=== PATIENT | male | born 1960 | race Caucasian/White ===

== ENCOUNTER 2022-05-23 12:50 | Observation (INO) | payer BC ==
[~2022-05-23] VITALS: Ht 180.3 cm; Wt 65.8 kg
[2022-05-23 13:50] LABS: BASOPHILS ABSOLUTE AUTO 0.04 K/mm3 (0.00-0.23); BASOPHILS PERCENT AUTO 0 % (0-2); EOSINOPHILS PERCENT AUTO 0 % (0-6); Hemoglobin 11.9 g/dL (13.5-17.5); IMMATURE GRAN ABSOLUTE AUTO 0.04 K/mm3 (0.00-0.10); IMMATURE GRAN PERCENT AUTO 0 % (0-1); LYMPHOCYTES ABSOLUTE AUTO 1.28 K/mm3 (0.84-5.20); LYMPHOCYTES PERCENT AUTO 13 % (21-46); MONOCYTES ABSOLUTE AUTO 0.93 K/mm3 (0.16-1.47); MONOCYTES PERCENT AUTO 9 % (4-13); Mean Corpuscular HGB 33.4 pg (26.0-34.0); Mean Corpuscular Volume 98 fL (80-100); Mean Platelet Volume 9.9 fL (9.1-12.4); NEUTROPHILS ABSOLUTE AUTO 7.83 K/mm3 (1.96-9.15); NEUTROPHILS PERCENT AUTO 77 % (41-73); Platelet Count 361 K/mm3 (150-400); RDW Coefficient Variation 11.7 % (11.7-14.2); RDW Standard Deviation 42.5 fL (35.1-46.3); Red Blood Cell Count 3.56 M/mm3 (4.30-5.90); White Blood Cell Count 10.12 K/mm3 (4.00-11.30)
[2022-05-23 14:35] LABS: Albumin, Blood 3.8 g/dL (3.4-5.0); Albumin/Globulin Ratio 1.2 (0.8-1.8); Bilirubin, Total 0.8 mg/dL (0.1-1.0); Bun/Creatinine Ratio 27.1 (12.0-20.0); Calcium, Blood 8.7 mg/dL (8.5-10.1); Creatinine, Blood 0.74 mg/dL (0.60-1.20); Globulin, Blood 3.2 g/dL (2.2-4.0); Potassium, Blood 3.6 mmol/L (3.5-5.5)
[2022-05-23 16:10] LABS: Source, Urine Clean Catch
[2022-05-23 16:15] LABS: Appearance, Urine Clear (Clear); Bilirubin, Urine Neg (Neg); Blood, Urine 3+ (Neg); Color, Urine Yellow (P-Yellow); Glucose Qualitative, Urine Neg (Neg); Ketones, Urine 4+ (Neg); Leukocyte Esterase, Urine Neg (Neg); Nitrite, Urine Neg (Neg); Protein, Urine 3+ (Neg); Urobilinogen, Urine NORM (Normal)
[2022-05-23 16:23] LABS: Bacteria Rare /hpf; Squamous Epithelial Cells Not Seen /hpf (Few); White Blood Cells, Urine 0-2 /hpf (0-5)
[2022-05-23 18:09] LABS: Influenza A, PCR NEGATIVE (NEGATIVE); Influenza B, PCR NEGATIVE (NEGATIVE); Resp Syncytial Virus, PCR NEGATIVE (NEGATIVE); SARS-Cov-2 (COVID-19) PCR, MMC NEGATIVE (NEGATIVE)
[2022-05-23] MEDS ORDERED: LORA1 PO (22:34)
[2022-05-23] MEDS ORDERED: HALO2 PO (22:34)
[2022-05-23] MEDS ORDERED: QUET200 (22:34)
[2022-05-24 07:50] LABS: U Amphetamine Screen Not Detected; U Barbituate Screen Not Detected; U Benzodiazapine Screen Not Detected; U Buprenorphine Screen Not Detected; U Cannabinoids Screen DETECTED; U Cocaine Screen Not Detected; U Methadone Screen Not Detected; U Methamphetamine Screen Not Detected; U Opiates Screen DETECTED; U Oxycodone Screen Not Detected; U Phencyclidine Screen Not Detected; U Propoxyphene Screen Not Detected
[2022-05-24 15:38] LABS: Ethanol (Alcohol), Blood, Med <3 mg/dL; Salicylate 1.8 mg/dL (2.8-20.0)
[2022-05-24 15:42] LABS: Acetaminophen, Random <2.0 ug/mL (10.0-30.0)
== END 2022-05-25 13:20 ==
LOC: ER 12:50 → EOR 12:51
PROVIDERS: Emergency Medicine; Physician Assistant; Psychiatry & Neurology Psychiatry; ADMIT Emergency Medicine
DX: F20.9 Schizophrenia, unspecified (principal); Z88.1 Allergy status to other antibiotic agents; R10.13 Epigastric pain
CPT/HCPCS: 0241U; 74177; 80053; 81001; 82947; 83690; 85025; 86592; A9270; G0480; J1170; J2405; J7030; Q9967

== ENCOUNTER 2024-06-06 08:03 | Emergency (ER) | payer SELFPAY ==
[~2024-06-06] VITALS: Ht 177.8 cm; Wt 70.3 kg
[~2024-06-06 08:03] MED LIST: HALO2 PO; LORA1 PO; QUET200 PO
[2024-06-06] MEDS ORDERED: Ondansetron HCl 2 MG / ML 2ML Vial IV ONE ×2 (08:35→09:10)
[2024-06-06] MEDS ORDERED: NS 1,000 ML IV SCH ×2 (08:35)
[2024-06-06] MEDS ORDERED: Morphine Sulfate 4 MG/1 ML Injection IV ONE ×2 (08:35→09:10)
[2024-06-06] MEDS ORDERED: Haloperidol Lactate Inj. 5 MG/ML Injection IV ONE (08:40)
[2024-06-06] MEDS ORDERED: DiphenhydrAMINE HCl 50 MG/ML 1ML Vial IV ONE (08:40)
[2024-06-06 08:54] LABS: BASOPHILS ABSOLUTE AUTO 0.06 K/mm3 (0.00-0.23); BASOPHILS PERCENT AUTO 1 % (0-2); EOSINOPHILS ABSOLUTE AUTO 0.23 K/mm3 (0.00-0.68); EOSINOPHILS PERCENT AUTO 3 % (0-6); Hematocrit 33.5 % (37.0-53.0); Hemoglobin 11.5 g/dL (13.5-17.5); IMMATURE GRAN ABSOLUTE AUTO 0.03 K/mm3 (0.00-0.10); IMMATURE GRAN PERCENT AUTO 0 % (0-1); LYMPHOCYTES ABSOLUTE AUTO 2.76 K/mm3 (0.84-5.20); LYMPHOCYTES PERCENT AUTO 31 % (21-46); MONOCYTES ABSOLUTE AUTO 0.96 K/mm3 (0.16-1.47); MONOCYTES PERCENT AUTO 11 % (4-13); Mean Corpuscular HGB 33.2 pg (26.0-34.0); Mean Corpuscular HGB Conc 34.3 g/dL (31.5-36.5); Mean Corpuscular Volume 97 fL (80-100); Mean Platelet Volume 9.2 fL (9.1-12.4); NEUTROPHILS ABSOLUTE AUTO 4.94 K/mm3 (1.96-9.15); NEUTROPHILS PERCENT AUTO 55 % (41-73); Platelet Count 352 K/mm3 (150-400); RDW Coefficient Variation 12.3 % (11.7-14.2); RDW Standard Deviation 43.8 fL (35.1-46.3); Red Blood Cell Count 3.46 M/mm3 (4.30-5.90); White Blood Cell Count 8.98 K/mm3 (4.00-11.30)
[2024-06-06] MEDS ORDERED: FAMO20 PO ×2 (09:00→12:17)
[2024-06-06] MEDS ORDERED: DULO60 PO (09:00)
[2024-06-06] MEDS ORDERED: TRAZ50 PO (09:00)
[2024-06-06 09:23] LABS: Magnesium, Blood 2.1 mg/dL (1.6-2.4)
[2024-06-06 09:24] LABS: Albumin, Blood 3.9 g/dL (3.4-5.0); Albumin/Globulin Ratio 1.2 (0.8-1.8); Bilirubin, Total 0.6 mg/dL (0.1-1.0); Bun/Creatinine Ratio 17.9 (12.0-20.0); Calcium, Blood 8.7 mg/dL (8.5-10.1); Creatinine, Blood 0.73 mg/dL (0.60-1.20); Globulin, Blood 3.3 g/dL (2.2-4.0); Potassium, Blood 3.8 mmol/L (3.5-5.5); Total Protein, Blood 7.2 g/dL (6.4-8.2)
[2024-06-06] MEDS ORDERED: Famotidine 10 MG/ML 2ML Vial IV ONE (09:40)
[2024-06-06 09:49] LABS: Source, Urine Clean Catch
[2024-06-06] MEDS ORDERED: Metoclopramide HCl 5MG / ML 2ML Vial IV ONE (09:55)
[2024-06-06 09:58] LABS: Appearance, Urine Clear (Clear); Bilirubin, Urine Neg (Neg); Blood, Urine 1+ (Neg); Color, Urine Yellow (P-Yellow); Glucose Qualitative, Urine Neg (Neg); Ketones, Urine 2+ (Neg); Leukocyte Esterase, Urine Neg (Neg); Nitrite, Urine Neg (Neg); Protein, Urine 2+ (Neg); Urobilinogen, Urine NORM (Normal); pH, Urine 6.5 (5.0-8.0)
[2024-06-06 10:18] LABS: Spermatozoa Rare /hpf
[2024-06-06 10:19] LABS: White Blood Cells, Urine 0-2 /hpf (0-5)
[2024-06-06 10:20] LABS: Squamous Epithelial Cells Rare /hpf (Few)
[2024-06-06 10:21] LABS: Amorphous Light (0-Heavy); Bacteria Rare /hpf; Mucus Light (0-Heavy)
[2024-06-06] MEDS ORDERED: HYDROmorphone HCl/Pf 1MG SYR IV ONE (11:45)
[2024-06-06 11:55] VITALS: BP 144/99
[2024-06-06] MEDS ORDERED: ACET500 PO (12:17)
[2024-06-06] MEDS ORDERED: DICY20 PO (12:17)
== END 2024-06-06 12:34 | disposition home or self-care (01) ==
LOC: ER 08:03
PROVIDERS: Emergency Medicine
DX: K20.90 Esophagitis, unspecified without bleeding (principal); K29.70 Gastritis, unspecified, without bleeding; Z79.899 Other long term (current) drug therapy; Z88.1 Allergy status to other antibiotic agents
CPT/HCPCS: 74177; 80053; 81001; 83690; 83735; 85025; 93005; 93010; 96361; 96374-59; 96375; 99284-25; J1171; J1200; J1630; J2270; J2405; J2765; J7030; Q9967

== ENCOUNTER 2024-07-16 13:11 | Day surgery (SDC) | payer BC ==
[~2024-07-16] VITALS: Ht 175.3 cm; Wt 66.5 kg
[2024-07-16 15:47] VITALS: BP 111/60
== END 2024-07-16 15:30 | disposition home or self-care (01) ==
LOC: ORSCSDS 13:11
PROC: 0DB58ZX Excision of Esophagus, Via Natural or Artificial Opening Endoscopic, Diagnostic (ICD-10-PCS; principal; 2024-07-16)
PROC: 0DJD8ZZ Inspection of Lower Intestinal Tract, Via Natural or Artificial Opening Endoscopic (ICD-10-PCS; principal; 2024-07-16)
PROC: 0DB98ZX Excision of Duodenum, Via Natural or Artificial Opening Endoscopic, Diagnostic (ICD-10-PCS; principal; 2024-07-16)
PROC: 0DB78ZX Excision of Stomach, Pylorus, Via Natural or Artificial Opening Endoscopic, Diagnostic (ICD-10-PCS; principal; 2024-07-16)
DX: R10.13 Epigastric pain (principal); R19.4 Change in bowel habit; R13.10 Dysphagia, unspecified; K21.9 Gastro-esophageal reflux disease without esophagitis; K62.5 Hemorrhage of anus and rectum; K29.80 Duodenitis without bleeding; K29.50 Unspecified chronic gastritis without bleeding; B96.81 Helicobacter pylori [H. pylori] as the cause of diseases classified elsewhere; K22.70 Barrett's esophagus without dysplasia; R93.3 Abnormal findings on diagnostic imaging of other parts of digestive tract; K64.8 Other hemorrhoids; Z79.899 Other long term (current) drug therapy

== ENCOUNTER 2024-08-05 03:47 | Emergency (ER) | payer BC ==
[~2024-08-05] VITALS: Ht 177.8 cm; Wt 63.5 kg
[~2024-08-05 03:47] MED LIST changes: +ACET500 PO; +ATOR10; +DICY20 PO; +DULO60 PO; +FAMO20 PO; +TRAZ50 PO
[2024-08-05] MEDS ORDERED: Ondansetron HCl 2 MG / ML 2ML Vial IV PRN (04:15)
[2024-08-05 04:26] LABS: BASOPHILS ABSOLUTE AUTO 0.04 K/mm3 (0.00-0.23); BASOPHILS PERCENT AUTO 1 % (0-2); EOSINOPHILS ABSOLUTE AUTO 0.14 K/mm3 (0.00-0.68); EOSINOPHILS PERCENT AUTO 2 % (0-6); Hematocrit 32.6 % (37.0-53.0); IMMATURE GRAN ABSOLUTE AUTO 0.02 K/mm3 (0.00-0.10); IMMATURE GRAN PERCENT AUTO 0 % (0-1); LYMPHOCYTES PERCENT AUTO 36 % (21-46); MONOCYTES ABSOLUTE AUTO 0.83 K/mm3 (0.16-1.47); MONOCYTES PERCENT AUTO 10 % (4-13); Mean Corpuscular HGB 33.9 pg (26.0-34.0); Mean Corpuscular HGB Conc 36.8 g/dL (31.5-36.5); Mean Corpuscular Volume 92 fL (80-100); Mean Platelet Volume 9.1 fL (9.1-12.4); NEUTROPHILS ABSOLUTE AUTO 4.12 K/mm3 (1.96-9.15); NEUTROPHILS PERCENT AUTO 51 % (41-73); Platelet Count 386 K/mm3 (150-400); RDW Coefficient Variation 13.2 % (11.7-14.2); RDW Standard Deviation 45.2 fL (35.1-46.3); Red Blood Cell Count 3.54 M/mm3 (4.30-5.90); White Blood Cell Count 8.05 K/mm3 (4.00-11.30)
[2024-08-05 04:59] LABS: Albumin, Blood 4.1 g/dL (3.4-5.0); Albumin/Globulin Ratio 1.2 (0.8-1.8); Bilirubin, Total 0.7 mg/dL (0.1-1.0); Calcium, Blood 9.2 mg/dL (8.5-10.1); Creatinine, Blood 0.65 mg/dL (0.60-1.20); Globulin, Blood 3.5 g/dL (2.2-4.0); Potassium, Blood 2.6 mmol/L (3.5-5.5); Total Protein, Blood 7.6 g/dL (6.4-8.2)
[2024-08-05] MEDS ORDERED: Pantoprazole Sodium 40 MG Injection IV ONE (07:10)
[2024-08-05] MEDS ORDERED: Mag Sulfate 1 GM/D5% 100ML 100 ML IV ONE (07:10)
[2024-08-05] MEDS ORDERED: Prochlorperazine Edisylate 10 mg Vial IV ONE (07:10)
[2024-08-05] MEDS ORDERED: Potassium Chloride 40 MEQ in NS 250 ML IV ONE (07:10)
[2024-08-05] MEDS ORDERED: NS 1,000 ML IV SCH ×2 (07:10)
[2024-08-05] MEDS ORDERED: HYDROmorphone HCl/Pf 1MG SYR IV ONE (07:15)
[2024-08-05] MEDS ORDERED: Potassium Chloride 20 MEQ TabCR PO ONE (08:55)
[2024-08-05] MEDS ORDERED: MetroNIDAZOLE 500MG/NS 100 ml 100 ML IV ONE (08:55)
[2024-08-05] MEDS ORDERED: Bismuth Subsalicylate 262 MG Chew PO ONE (09:15)
[2024-08-05 09:45] VITALS: BP 161/96
[2024-08-05] MEDS ORDERED: Haloperidol 1 MG Tab PO ONE (10:10)
[2024-08-05] MEDS ORDERED: Mag Hydrox/AL Hydrox/Simeth 30 ML UDC PO ONE (12:10)
[2024-08-05] MEDS ORDERED: ONDA4ODT MM (12:12)
== END 2024-08-05 13:01 | disposition home or self-care (01) ==
LOC: ER 03:47
PROVIDERS: Student in an Organized Health Care Education/Training Program
DX: A04.8 Other specified bacterial intestinal infections (principal); E87.6 Hypokalemia; Z88.1 Allergy status to other antibiotic agents; Z79.899 Other long term (current) drug therapy
CPT/HCPCS: 80053; 83690; 83735; 85025; 93005; 93010; 96365; 96366; 96368; 96375; 99284-25; A9270; J0780; J1171; J2405; J2470; J3475; J3480; J7030; J7050

== ENCOUNTER → 2024-09-09 | Outpatient (CLI) | payer BC ==
[~2024-09-09] MED LIST changes: +ONDA4ODT MM
[2024-09-09 09:27] LABS: Source, Urine Voided
[2024-09-09 09:45] LABS: Red Blood Cells, Urine 0-2 /hpf (0-2); White Blood Cells, Urine 0-2 /hpf (0-5)
[2024-09-09 12:31] LABS: Stool Occult Bld Immuno 1 Negative (NEGATIVE)
== END | disposition home or self-care (01) ==
LOC: LAB 08:03 → LAB SHORT 08:03
PROVIDERS: Nurse Practitioner Family
DX: D64.9 Anemia, unspecified (principal)
CPT/HCPCS: 81015; 82274

== ENCOUNTER → 2024-12-24 | Outpatient (CLI) | payer BC ==
[2024-12-24 17:49] LABS: BASOPHILS ABSOLUTE AUTO 0.08 K/mm3 (0.00-0.23); BASOPHILS PERCENT AUTO 1 % (0-2); EOSINOPHILS ABSOLUTE AUTO 0.31 K/mm3 (0.00-0.68); EOSINOPHILS PERCENT AUTO 3 % (0-6); Hematocrit 38.0 % (37.0-53.0); Hemoglobin 12.6 g/dL (13.5-17.5); IMMATURE GRAN ABSOLUTE AUTO 0.05 K/mm3 (0.00-0.10); IMMATURE GRAN PERCENT AUTO 1 % (0-1); LYMPHOCYTES ABSOLUTE AUTO 2.60 K/mm3 (0.84-5.20); LYMPHOCYTES PERCENT AUTO 27 % (21-46); MONOCYTES ABSOLUTE AUTO 1.01 K/mm3 (0.16-1.47); MONOCYTES PERCENT AUTO 10 % (4-13); Mean Corpuscular HGB Conc 33.2 g/dL (31.5-36.5); Mean Corpuscular Volume 97 fL (80-100); NEUTROPHILS ABSOLUTE AUTO 5.63 K/mm3 (1.96-9.15); NEUTROPHILS PERCENT AUTO 58 % (41-73); NRBC ABSOLUTE 0.00 K/mm3 (0.00-0.02); NRBC Auto 0.0 /100 WBC (0.0-0.2); Platelet Count 326 K/mm3 (150-400); RDW Coefficient Variation 13.2 % (11.7-14.2); RDW Standard Deviation 47.0 fL (35.1-46.3)
[2024-12-24 18:41] LABS: Alanine Aminotransfer (ALT/SGP 28.0 U/L (12-78); Albumin, Blood 3.8 g/dL (3.4-5.0); Albumin/Globulin Ratio 1.0 (0.8-1.8); Anion Gap 9.0 mmol/L (3-11); Aspartate Aminotrans (AST/SGOT 13.0 U/L (12-37); Bilirubin, Total 0.3 mg/dL (0.1-1.0); Blood Urea Nitrogen 18.0 mg/dL (8-24); CO2, Blood 26.0 mmol/L (21-32); Calcium, Blood 8.9 mg/dL (8.5-10.1); Chloride, Blood 103.0 mmol/L (98-108); Creatinine, Blood 0.75 mg/dL (0.60-1.20); Ferritin, Serum 118.0 ng/mL (26-388); Globulin, Blood 3.7 g/dL (2.2-4.0); Glucose, Blood 114.0 mg/dL (70-99); Potassium, Blood 3.8 mmol/L (3.5-5.5); Sodium, Blood 134.0 mmol/L (136-145); Total Iron Binding Capacity 356.0 ug/dL (250-450); Total Protein, Blood 7.5 g/dL (6.4-8.2)
== END ==
LOC: LAB 16:35 → LAB SHORT 16:35
PROVIDERS: Nurse Practitioner Family
DX: D64.9 Anemia, unspecified (principal)
CPT/HCPCS: 80053; 82728; 83540; 83550; 85025

== ENCOUNTER 2025-01-09 17:54 | Inpatient (IN) | payer BC ==
[~2025-01-09] VITALS: Ht 177.8 cm; Wt 66.2 kg
[2025-01-09] MEDS ORDERED: Ondansetron HCl 2 MG / ML 2ML Vial IV ONE ×2 (18:30→20:35)
[2025-01-09] MEDS ORDERED: HYDROmorphone HCl/Pf 1MG SYR IV ONE ×3 (18:30→21:45)
[2025-01-09 18:55] LABS: BASOPHILS ABSOLUTE AUTO 0.05 K/mm3 (0.00-0.23); BASOPHILS PERCENT AUTO 0 % (0-2); EOSINOPHILS ABSOLUTE AUTO 0.00 K/mm3 (0.00-0.68); EOSINOPHILS PERCENT AUTO 0 % (0-6); Hematocrit 34.5 % (37.0-53.0); Hemoglobin 12.0 g/dL (13.5-17.5); IMMATURE GRAN ABSOLUTE AUTO 0.16 K/mm3 (0.00-0.10); IMMATURE GRAN PERCENT AUTO 1 % (0-1); LYMPHOCYTES ABSOLUTE AUTO 1.50 K/mm3 (0.84-5.20); LYMPHOCYTES PERCENT AUTO 8 % (21-46); MONOCYTES ABSOLUTE AUTO 2.45 K/mm3 (0.16-1.47); MONOCYTES PERCENT AUTO 12 % (4-13); Mean Corpuscular HGB Conc 34.8 g/dL (31.5-36.5); Mean Corpuscular Volume 92 fL (80-100); NEUTROPHILS ABSOLUTE AUTO 15.74 K/mm3 (1.96-9.15); NEUTROPHILS PERCENT AUTO 79 % (41-73); NRBC ABSOLUTE 0.00 K/mm3 (0.00-0.02); NRBC Auto 0.0 /100 WBC (0.0-0.2); Platelet Count 324 K/mm3 (150-400); RDW Coefficient Variation 12.5 % (11.7-14.2); RDW Standard Deviation 42.3 fL (35.1-46.3)
[2025-01-09 19:25] LABS: Alanine Aminotransfer (ALT/SGP 20.0 U/L (12-78); Albumin, Blood 3.3 g/dL (3.4-5.0); Albumin/Globulin Ratio 0.7 (0.8-1.8); Anion Gap 10.0 mmol/L (3-11); Aspartate Aminotrans (AST/SGOT 17.0 U/L (12-37); Bilirubin, Total 0.7 mg/dL (0.1-1.0); Blood Urea Nitrogen 15.0 mg/dL (8-24); CO2, Blood 27.0 mmol/L (21-32); Calcium, Blood 8.7 mg/dL (8.5-10.1); Chloride, Blood 94.0 mmol/L (98-108); Creatinine, Blood 1.06 mg/dL (0.60-1.20); Globulin, Blood 4.7 g/dL (2.2-4.0); Glucose, Blood 156.0 mg/dL (70-99); Potassium, Blood 3.4 mmol/L (3.5-5.5); Sodium, Blood 128.0 mmol/L (136-145); Total Protein, Blood 8.0 g/dL (6.4-8.2)
[2025-01-09] MEDS ORDERED: NS 1,000 ML IV SCH ×2 (20:35→21:50)
[2025-01-09] MEDS ORDERED: Lidocaine 2% Jelly Uro-Jet UR ONE (20:50)
[2025-01-09 21:21] LABS: Source, Urine Foley catheter
[2025-01-09 21:26] LABS: Bilirubin, Urine Neg (Neg); Color, Urine Yellow (P-Yellow); Glucose Qualitative, Urine Neg (Neg); Ketones, Urine 1+ (Neg); Leukocyte Esterase, Urine 2+ (Neg); Protein, Urine 4+ (Neg); Specific Gravity, Urine 1.010 (1.003-1.022); Urobilinogen, Urine 1+ (Normal)
[2025-01-09 21:32] LABS: White Blood Cells, Urine 25-50 /hpf (0-5)
[2025-01-09] MEDS ORDERED: Ketorolac Tromethamine 30mg Vial IV ONE (21:35)
[2025-01-09] MEDS ORDERED: HYDROmorphone HCl/Pf 1MG SYR ONE (21:45)
[2025-01-09] MEDS ORDERED: LORazepam 2 MG/ML 1ML Injection IV ONE (21:50)
[2025-01-09] MEDS ORDERED: CefTRIAXone Sodium 1,000 MG in NS 50 ML IV ONE (21:50)
[2025-01-09] MEDS ORDERED: HYDROmorphone HCl/Pf 1MG SYR IV PRN (22:45)
[2025-01-09] MEDS ORDERED: Naloxone HCl 0.4MG / ML 1ML Vial IV PRN (22:45)
[2025-01-09] MEDS ORDERED: Ondansetron HCl 2 MG / ML 2ML Vial IV PRN (22:45)
[2025-01-09] MEDS ORDERED: FLU VACC TS2025-26(6MOS UP)/PF 45 MCG/0.5 ML SYRINGE IM SCH (22:45)
[2025-01-09] MEDS ORDERED: HYDROcodone 5-APAP 325 TAB PO PRN (22:45)
[2025-01-09] MEDS ORDERED: Ketorolac Tromethamine 15mg Vial IV PRN (23:05)
[2025-01-09 23:29] LABS: pH Blood Venous 7.40 (7.34-7.37)
[2025-01-09 23:33] LABS: U Amphetamine Screen Not Detected; U Barbiturate Screen Not Detected; U Benzodiazapine Screen DETECTED; U Buprenorphine Screen Not Detected; U Cannabinoids Screen DETECTED; U Cocaine Screen Not Detected; U Methadone Screen Not Detected; U Methamphetamine Screen Not Detected; U Opiates Screen Not Detected; U Oxycodone Screen Not Detected; U Phencyclidine Screen Not Detected
[2025-01-10 01:40] VITALS: BP 118/91
--- NOTE | 2025-01-10 03:28 | NUR ---
ADMIT SUMMARY: PT ARRIVED ON UNIT VIA GURNEY AT 0117. PT APPEARD TO BE CONFUSED AND AGGITATED. PT STATED THEY WERE IN A LOT OF PAIN SO PT WAS MEDICATED PER EMAR. PT IS IMPULSIVE AND WAS FOUND TO BE TRYING TO PEE IN THE TRASH CAN WITH THEIR MONTES IN PLACE. PT REMINDED THAT THEY HAVE A MONTES AND REDIRECTED BACK TO BED. BED ALARM SET.
[2025-01-10 04:43] LABS: BASOPHILS ABSOLUTE AUTO 0.04 K/mm3 (0.00-0.23); BASOPHILS PERCENT AUTO 0 % (0-2); EOSINOPHILS ABSOLUTE AUTO 0.00 K/mm3 (0.00-0.68); EOSINOPHILS PERCENT AUTO 0 % (0-6); Hematocrit 29.6 % (37.0-53.0); Hemoglobin 9.9 g/dL (13.5-17.5); IMMATURE GRAN ABSOLUTE AUTO 0.15 K/mm3 (0.00-0.10); IMMATURE GRAN PERCENT AUTO 1 % (0-1); LYMPHOCYTES ABSOLUTE AUTO 0.68 K/mm3 (0.84-5.20); LYMPHOCYTES PERCENT AUTO 4 % (21-46); MONOCYTES ABSOLUTE AUTO 1.89 K/mm3 (0.16-1.47); MONOCYTES PERCENT AUTO 12 % (4-13); Mean Corpuscular HGB Conc 33.4 g/dL (31.5-36.5); Mean Corpuscular Volume 96 fL (80-100); NEUTROPHILS ABSOLUTE AUTO 13.68 K/mm3 (1.96-9.15); NEUTROPHILS PERCENT AUTO 83 % (41-73); NRBC ABSOLUTE 0.00 K/mm3 (0.00-0.02); NRBC Auto 0.0 /100 WBC (0.0-0.2); Platelet Count 276 K/mm3 (150-400); RDW Coefficient Variation 12.7 % (11.7-14.2); RDW Standard Deviation 43.8 fL (35.1-46.3)
[2025-01-10 05:08] LABS: Alanine Aminotransfer (ALT/SGP 15.0 U/L (12-78); Albumin, Blood 2.3 g/dL (3.4-5.0); Albumin/Globulin Ratio 0.6 (0.8-1.8); Anion Gap 9.0 mmol/L (3-11); Aspartate Aminotrans (AST/SGOT 17.0 U/L (12-37); Bilirubin, Total 0.5 mg/dL (0.1-1.0); Blood Urea Nitrogen 14.0 mg/dL (8-24); CO2, Blood 24.0 mmol/L (21-32); Calcium, Blood 7.8 mg/dL (8.5-10.1); Chloride, Blood 102.0 mmol/L (98-108); Creatinine, Blood 0.93 mg/dL (0.60-1.20); Globulin, Blood 3.9 g/dL (2.2-4.0); Glucose, Blood 124.0 mg/dL (70-99); Magnesium, Blood 2.1 mg/dL (1.6-2.4); Potassium, Blood 3.5 mmol/L (3.5-5.5); Sodium, Blood 131.0 mmol/L (136-145); Total Protein, Blood 6.2 g/dL (6.4-8.2)
--- NOTE | 2025-01-10 06:32 | NUR ---
[facility] CALLED FOR AN UPDATE ON PT. THEY HAVE POA/JESSHIP ON THE PT. CONTACT NUMBER IS [phone]. SHE STATED SHE IS GOING TO BE HERE THIS MORNING AND WILL ALSO BRING POA PAPERS. SHE EXPRESSED CONCERNS THAT THE PT IS SUPPOSE TO HAVE SOME SORT OF GI TEST ON 01/19 THAT REQUIRES THE PT NOT TO HAVE ANY KIND OF ANTACIDS, PEPTO, OR PRILOSEC. SHE ALSO EXPRESSED CONCERNS OF THE PT NOT TAKING HIS MEDICATION PROPERLY AND STATED THAT "HE TELLS HER THAT HE GETS UP IN THE MORNING AND JUST TAKES A HANDFUL OF PILLS AND DOESN'T EVEN LOOK AT WHAT HE IS TAKING." THE MIRNA ALSO STATED THAT THE PT LIVES WITH MONIKA THE PTS SON BUT SHE FEELS THAT IS A UNSAFE SITUATION DUE TO THE SON BEING AN ALCOHOLIC AND NOT HELPING THE PT WITH MEDICATIONS AND SAFETY.
[2025-01-10 07:30] VITALS: BP 126/65
[2025-01-10] MEDS ORDERED: Lactobacil 2-S.Thermo-Bifido 1 1 Cap PO SCH (09:00)
[2025-01-10] MEDS ORDERED: Enoxaparin 40 MG/0.4 ML SYR SC SCH (09:00)
[2025-01-10] MEDS ORDERED: C COMPLEX1000 M1 PO (10:55)
[2025-01-10] MEDS ORDERED: OMEPRAZOLE MAGN20 MG PO (10:58)
[2025-01-10] MEDS ORDERED: FERSU300 PO (10:59)
[2025-01-10] MEDS ORDERED: NS 1,000 ML IV SCH (11:00)
[2025-01-10] MEDS ORDERED: MIRT15 PO (11:03)
[2025-01-10 12:10] VITALS: BP 133/80
[2025-01-10 15:58] VITALS: BP 128/66
--- NOTE | 2025-01-10 19:36 | NUR ---
assumed care pt sleeping this morning and not wanting to wake up or answer questions. vss kong draining yuval urine, ivfluids infusing. no s/s distress.
--- NOTE | 2025-01-10 19:38 | NUR ---
0900 pt wake alert and jumping out of bed c/o not being able to urinate, it was explained to pt that he had a kong, but was not able to comprehend and was then assisted to bathroom to sit on toilet. pt was discouraged from pulling on cath. it was noted that urine was not coming out of kong normally so i made decision to flush catheter with 20ml ns. after flushing urine was able to drain and pt felt much better. this was repeated several times throughout shift and brought relief to pt. 1600 pt was c/o severe discomfort so kong was removed and pt was able to urinate on his own. no stone noted through filter. pt aware and agrees to have catheter placed if he isnt able to urinate this evening. pt has been much more directable and agreeable
[2025-01-10 20:28] VITALS: BP 129/70
[2025-01-10] MEDS ORDERED: CefTRIAXone Sodium 1,000 MG in NS 100 ML IV SCH (21:00)
[2025-01-11 05:17] VITALS: BP 155/91
--- NOTE | 2025-01-11 06:43 | NUR ---
SHIFT SUMMARY; HAD LONG PERIODS OF SLEEP, BUT ALSO, HAD PAINFUL EPISODES. NO STONES NOTED IN URINE. URINE CLEAR. MEDICATED FOR PAIN, PRN. 1 IV INFILTRATED. UP TO BR IV COMPLETED
[2025-01-11 07:16] LABS: BASOPHILS ABSOLUTE AUTO 0.02 K/mm3 (0.00-0.23); BASOPHILS PERCENT AUTO 0 % (0-2); EOSINOPHILS ABSOLUTE AUTO 0.01 K/mm3 (0.00-0.68); EOSINOPHILS PERCENT AUTO 0 % (0-6); Hematocrit 28.8 % (37.0-53.0); Hemoglobin 9.7 g/dL (13.5-17.5); IMMATURE GRAN ABSOLUTE AUTO 0.07 K/mm3 (0.00-0.10); IMMATURE GRAN PERCENT AUTO 1 % (0-1); LYMPHOCYTES ABSOLUTE AUTO 0.66 K/mm3 (0.84-5.20); LYMPHOCYTES PERCENT AUTO 7 % (21-46); MONOCYTES ABSOLUTE AUTO 0.87 K/mm3 (0.16-1.47); MONOCYTES PERCENT AUTO 10 % (4-13); Mean Corpuscular HGB Conc 33.7 g/dL (31.5-36.5); Mean Corpuscular Volume 96 fL (80-100); NEUTROPHILS ABSOLUTE AUTO 7.49 K/mm3 (1.96-9.15); NEUTROPHILS PERCENT AUTO 82 % (41-73); NRBC ABSOLUTE 0.00 K/mm3 (0.00-0.02); NRBC Auto 0.0 /100 WBC (0.0-0.2); Platelet Count 289 K/mm3 (150-400); RDW Coefficient Variation 12.8 % (11.7-14.2); RDW Standard Deviation 44.6 fL (35.1-46.3)
[2025-01-11] MEDS ORDERED: Polyethylene Glycol 3350 17 gm PO PRN (07:25)
[2025-01-11 07:33] LABS: Albumin, Blood 2.2 g/dL (3.4-5.0); Anion Gap 9 mmol/L (3-11); Blood Urea Nitrogen 17 mg/dL (8-24); CO2, Blood 24 mmol/L (21-32); Calcium, Blood 7.8 mg/dL (8.5-10.1); Chloride, Blood 101 mmol/L (98-108); Creatinine, Blood 0.85 mg/dL (0.60-1.20); Glucose, Blood 100 mg/dL (70-99); Magnesium, Blood 2.1 mg/dL (1.6-2.4); Phosphorus, Blood 1.3 mg/dL (2.5-4.9); Potassium, Blood 3.4 mmol/L (3.5-5.5); Sodium, Blood 131 mmol/L (136-145)
[2025-01-11 07:34] VITALS: BP 117/76
[2025-01-11] MEDS ORDERED: Potassium Phos/Sodium Phos 250 MG PACK PO SCH (08:00)
[2025-01-11 15:58] VITALS: BP 141/83
--- NOTE | 2025-01-11 18:39 | NUR ---
ASSUMED CARE OF PT A/O X 3-4 MORE COOPERATIVE TODAY STATES HIS PAIN IS LESS BUT DIESNT BELIEVE HE IS GETTING BETTER BECAUSE HE STILL HAS PAIN IN HIS ABD. PT MEDICATED PER MAY. DR URIAS AT BEDSIDE TO ASSESS PT.
--- NOTE | 2025-01-11 18:41 | NUR ---
PT CONT TO DO FINE, PREVIOUS ELEVELATED TEMP BROKE AND PT NOW HAVING COLD SWEATS, CONT TO C/O ABD AND GROINING PAIN, EXPRESSED TO PT THAT HE NEEDED TO CONT TO URINATE IN URINAL FOR IT TO BE STRAINED, PT VERBALIZED UNDERSTANDING.
--- NOTE | 2025-01-11 18:43 | NUR ---
PT STATED HE URINATED IN THE TOILET AND SAW SOME BLACK STONE LIKE OBJECTS. I EMPTIED WHAT WAS IN URINAL AND SOME STONES WERE NOTED AND PLACED IN SPECIMEN CUP. NEW IV STARTED TO LEFT FA.
[2025-01-12 04:18] LABS: BASOPHILS ABSOLUTE AUTO 0.03 K/mm3 (0.00-0.23); BASOPHILS PERCENT AUTO 0 % (0-2); EOSINOPHILS ABSOLUTE AUTO 0.01 K/mm3 (0.00-0.68); EOSINOPHILS PERCENT AUTO 0 % (0-6); Hematocrit 32.6 % (37.0-53.0); Hemoglobin 11.0 g/dL (13.5-17.5); IMMATURE GRAN ABSOLUTE AUTO 0.07 K/mm3 (0.00-0.10); IMMATURE GRAN PERCENT AUTO 1 % (0-1); LYMPHOCYTES ABSOLUTE AUTO 1.17 K/mm3 (0.84-5.20); LYMPHOCYTES PERCENT AUTO 13 % (21-46); MONOCYTES ABSOLUTE AUTO 0.84 K/mm3 (0.16-1.47); MONOCYTES PERCENT AUTO 9 % (4-13); Mean Corpuscular HGB Conc 33.7 g/dL (31.5-36.5); Mean Corpuscular Volume 93 fL (80-100); NEUTROPHILS ABSOLUTE AUTO 7.05 K/mm3 (1.96-9.15); NEUTROPHILS PERCENT AUTO 77 % (41-73); NRBC ABSOLUTE 0.00 K/mm3 (0.00-0.02); NRBC Auto 0.0 /100 WBC (0.0-0.2); Platelet Count 332 K/mm3 (150-400); RDW Coefficient Variation 12.8 % (11.7-14.2); RDW Standard Deviation 44.0 fL (35.1-46.3)
[2025-01-12 04:35] LABS: Alanine Aminotransfer (ALT/SGP 24.0 U/L (12-78); Albumin, Blood 2.4 g/dL (3.4-5.0); Albumin/Globulin Ratio 0.6 (0.8-1.8); Anion Gap 13.0 mmol/L (3-11); Aspartate Aminotrans (AST/SGOT 22.0 U/L (12-37); Bilirubin, Total 0.3 mg/dL (0.1-1.0); Blood Urea Nitrogen 9.0 mg/dL (8-24); CO2, Blood 23.0 mmol/L (21-32); Calcium, Blood 8.3 mg/dL (8.5-10.1); Chloride, Blood 100.0 mmol/L (98-108); Creatinine, Blood 0.73 mg/dL (0.60-1.20); Globulin, Blood 4.2 g/dL (2.2-4.0); Glucose, Blood 98.0 mg/dL (70-99); Magnesium, Blood 2.0 mg/dL (1.6-2.4); Phosphorus, Blood 2.0 mg/dL (2.5-4.9); Potassium, Blood 3.5 mmol/L (3.5-5.5); Sodium, Blood 132.0 mmol/L (136-145); Total Protein, Blood 6.6 g/dL (6.4-8.2)
[2025-01-12 04:57] VITALS: BP 141/77
--- NOTE | 2025-01-12 05:27 | NUR ---
SHIFT SUMMARY NOC PT A/O X 4. PLEASANT AND COOPERATIVE WITH CARE. VSS. HS CBG 105 WITH CNI. PT PASSED KIDNY STONE YESTERDAY AND LAB IS PENDING. PT L FLANK PAIN 5/10 AND PT DECLINED PAIN MEDICATION. PT RECEIVIED IV ABX PER EMAR. PT CURRENTLY RESTING WITH BED LOCKED AND IN LOWEST POSITION, AND CALL LIGHT WITHIN REACH.
[2025-01-12 07:27] VITALS: BP 132/97
[2025-01-12] MEDS ORDERED: CefTRIAXone Sodium 2,000 MG in NS 100 ML IV SCH (09:00)
[2025-01-12 15:32] VITALS: BP 115/79
--- NOTE | 2025-01-12 15:54 | NUR ---
SHIFT SUMMARY NO ACUTE CHANGES, A/Ox4, ABLE TO MAKE NEEDS KNOWN. TREATED FOR MIGRAINE AND ABD PAIN PER EMAR. PROVIDER AWARE OF ABD PAIN AND LACK OF APPETITE. PT SLEEPING MAJORITY OF SHIFT, WAKENS EASILY AND IS COOPERTIVE WITH CARE. INDEPENDENT IN ROOM. NO KIDNEY STONES PASSED YET THIS SHIFT. PT CURRENTLY SLEEPING IN BED ON RIGHT SIDE WITH BED IN LOWEST POSITION AND CALL LIGHT IN REACH. PT APPEARS COMFORTABLE AND IN NO DISTRESS. NO ORAL TEMPS ABOVE 100.4 THIS SHIFT, PROVIDER WOULD LIKE TO BE NOTIFIED OF ANY TEMP ABOVE 100.4.
[2025-01-12 20:45] VITALS: BP 126/75
[2025-01-13 04:53] VITALS: BP 144/92
[2025-01-13 05:02] LABS: BASOPHILS ABSOLUTE AUTO 0.04 K/mm3 (0.00-0.23); BASOPHILS PERCENT AUTO 0 % (0-2); EOSINOPHILS ABSOLUTE AUTO 0.13 K/mm3 (0.00-0.68); EOSINOPHILS PERCENT AUTO 1 % (0-6); Hematocrit 32.4 % (37.0-53.0); Hemoglobin 11.1 g/dL (13.5-17.5); IMMATURE GRAN ABSOLUTE AUTO 0.08 K/mm3 (0.00-0.10); IMMATURE GRAN PERCENT AUTO 1 % (0-1); LYMPHOCYTES ABSOLUTE AUTO 1.90 K/mm3 (0.84-5.20); LYMPHOCYTES PERCENT AUTO 19 % (21-46); MONOCYTES ABSOLUTE AUTO 1.10 K/mm3 (0.16-1.47); MONOCYTES PERCENT AUTO 11 % (4-13); Mean Corpuscular HGB Conc 34.3 g/dL (31.5-36.5); Mean Corpuscular Volume 94 fL (80-100); NEUTROPHILS ABSOLUTE AUTO 6.82 K/mm3 (1.96-9.15); NEUTROPHILS PERCENT AUTO 68 % (41-73); NRBC ABSOLUTE 0.00 K/mm3 (0.00-0.02); NRBC Auto 0.0 /100 WBC (0.0-0.2); Platelet Count 386 K/mm3 (150-400); RDW Coefficient Variation 13.0 % (11.7-14.2); RDW Standard Deviation 44.2 fL (35.1-46.3)
--- NOTE | 2025-01-13 05:17 | NUR ---
SHIFT SUMMARY: PT AOX4 IND IN THE ROOM. HAS HAD MANY VOIDS LAST NIGHT WITH NOTHING IN THE SIFT. PT TOLERATING MEDICATIONS WELL, THOUGH COMPLAINTS OF SWEATS AND PAIN. MEDICATED PER EMR. WOKE UP IN A LOT OF SWEAT LINENS CHANGED. PT PLEASANT AND COOPERATIVE IN CARE. NO ACUTE OVERNIGHT EVENTS. PT IN BED RESTING, BED IN LOWESST POSITION, CALL LIGHT IN REACH. CONTINUING CARE.
[2025-01-13 05:23] LABS: Anion Gap 10.0 mmol/L (3-11); Blood Urea Nitrogen 9.0 mg/dL (8-24); CO2, Blood 28.0 mmol/L (21-32); Calcium, Blood 8.7 mg/dL (8.5-10.1); Chloride, Blood 102.0 mmol/L (98-108); Creatinine, Blood 0.68 mg/dL (0.60-1.20); Glucose, Blood 114.0 mg/dL (70-99); Potassium, Blood 3.2 mmol/L (3.5-5.5); Sodium, Blood 137.0 mmol/L (136-145)
[2025-01-13] MEDS ORDERED: NS 250 ML IV PRN (08:20)
[2025-01-13] MEDS ORDERED: Ketorolac Tromethamine 30mg Vial IV ONE (09:00)
--- NOTE | 2025-01-13 12:01 | NUR ---
NOTIFIED RESIDENT DR GODFREY RE PT PASSING ANOTHER KIDNEY STONE, NO NEW ORDERS. ALSO VERIFIED START DATE/TIME OF OMNICEF - PER EPIFANIO START OMNICEF AT 2100, ORDER CHANGED IN EMAR.
[2025-01-13 15:08] VITALS: BP 141/95
[2025-01-13] MEDS ORDERED: CEFD300 PO (16:20)
[2025-01-13] MEDS ORDERED: Norco 5-325 Ta1 EACH PO (16:21)
[2025-01-13] MEDS ORDERED: VISBIOME 112.51 EACH PO (16:22)
--- NOTE | 2025-01-13 17:04 | NUR ---
DISCHARGE PT DISCHARGED HOME WITH SERVICES. DISCHARGE INSTRUCTIONS REVIEWED WITH PT AND PT GUARDIAN AT BEDSIDE. NEW RX FAXED TO [facility] PER REQUEST. IV REMOVED BY CNA2 - SITE APPEARS WNL. PT ABLE TO STAND AND AMBULATE TO AND WHEELED DOWN BY PHYSICAL THERAPIST. PT PICKED BY SISTER/GUARDIAN DEL.
== END 2025-01-13 17:02 | disposition home or self-care (01) | DRG 872 ==
LOC: ER 17:54 → MEDS 17:55 → ERHOLD 17:55 → MEDS 17:55 → ER 17:55 → MEDS 17:56 → ERHOLD 01-10 01:11 → MEDS 01-10 15:12 → ENPENDDIS 01-13 15:53 → MEDS 01-13 17:02
PROVIDERS: Emergency Medicine; ADMIT Student in an Organized Health Care Education/Training Program
PROC: 0T9B70Z Drainage of Bladder with Drainage Device, Via Natural or Artificial Opening (ICD-10-PCS; principal; 2025-01-10)
DX: A41.51 Sepsis due to Escherichia coli [E. coli] (principal); N13.6 Pyonephrosis; E87.1 Hypo-osmolality and hyponatremia; R45.1 Restlessness and agitation; K21.9 Gastro-esophageal reflux disease without esophagitis; E87.6 Hypokalemia; F20.9 Schizophrenia, unspecified; Z66 Do not resuscitate; Z88.1 Allergy status to other antibiotic agents; Z87.19 Personal history of other diseases of the digestive system; Z79.899 Other long term (current) drug therapy
CPT/HCPCS: 36415; 51702; 51798; 74177; 80048; 80053; 80069; 81001; 82803; 82947; 83036; 83605; 83690; 83735; 84100; 84484; 85025; 87040; 87077; 87086; 87186; 96361; 96372; 96374; 96375; 96376; 97161; 99285-25; A9270; G0378; J0696; J1171; J1650; J1885; J2060; J2405; J3480; J7030; J7050; Q9967

== ENCOUNTER → 2025-02-10 | Outpatient (CLI) | payer BC ==
[~2025-02-10] MED LIST changes: +C COMPLEX1000 M1 PO; +CEFD300 PO; +FERSU300 PO; +MIRT15 PO; +Norco 5-325 Ta1 EACH PO; +OMEPRAZOLE MAGN20 MG PO; +VISBIOME 112.51 EACH PO
== END ==
LOC: LAB 18:57 → LAB SHORT 18:57
DX: R10.30 Lower abdominal pain, unspecified (principal)
CPT/HCPCS: 87086

== ENCOUNTER → 2025-02-14 | Outpatient (CLI) | payer BC ==
[2025-02-14 15:56] LABS: BASOPHILS ABSOLUTE AUTO 0.06 K/mm3 (0.00-0.23); BASOPHILS PERCENT AUTO 1 % (0-2); EOSINOPHILS ABSOLUTE AUTO 0.28 K/mm3 (0.00-0.68); EOSINOPHILS PERCENT AUTO 3 % (0-6); Hematocrit 38.8 % (37.0-53.0); Hemoglobin 12.6 g/dL (13.5-17.5); IMMATURE GRAN ABSOLUTE AUTO 0.03 K/mm3 (0.00-0.10); IMMATURE GRAN PERCENT AUTO 0 % (0-1); LYMPHOCYTES ABSOLUTE AUTO 2.63 K/mm3 (0.84-5.20); LYMPHOCYTES PERCENT AUTO 29 % (21-46); MONOCYTES ABSOLUTE AUTO 0.94 K/mm3 (0.16-1.47); MONOCYTES PERCENT AUTO 10 % (4-13); Mean Corpuscular HGB Conc 32.5 g/dL (31.5-36.5); Mean Corpuscular Volume 99 fL (80-100); NEUTROPHILS ABSOLUTE AUTO 5.09 K/mm3 (1.96-9.15); NEUTROPHILS PERCENT AUTO 56 % (41-73); NRBC ABSOLUTE 0.00 K/mm3 (0.00-0.02); NRBC Auto 0.0 /100 WBC (0.0-0.2); Platelet Count 312 K/mm3 (150-400); RDW Coefficient Variation 13.2 % (11.7-14.2); RDW Standard Deviation 47.6 fL (35.1-46.3)
[2025-02-14 16:20] LABS: Alanine Aminotransfer (ALT/SGP 19.0 U/L (12-78); Albumin, Blood 3.7 g/dL (3.4-5.0); Albumin/Globulin Ratio 0.9 (0.8-1.8); Anion Gap 9.0 mmol/L (3-11); Aspartate Aminotrans (AST/SGOT 12.0 U/L (12-37); Bilirubin, Total 0.3 mg/dL (0.1-1.0); Blood Urea Nitrogen 16.0 mg/dL (8-24); CO2, Blood 26.0 mmol/L (21-32); Calcium, Blood 8.7 mg/dL (8.5-10.1); Chloride, Blood 106.0 mmol/L (98-108); Creatinine, Blood 0.71 mg/dL (0.60-1.20); Ferritin, Serum 119.0 ng/mL (26-388); Globulin, Blood 4.0 g/dL (2.2-4.0); Glucose, Blood 84.0 mg/dL (70-99); Potassium, Blood 3.7 mmol/L (3.5-5.5); Sodium, Blood 137.0 mmol/L (136-145); Total Iron Binding Capacity 304.0 ug/dL (250-450); Total Protein, Blood 7.7 g/dL (6.4-8.2)
== END ==
LOC: LAB 14:27 → LAB SHORT 14:27
PROVIDERS: Nurse Practitioner Family
DX: R10.30 Lower abdominal pain, unspecified (principal)
CPT/HCPCS: 80053; 82728; 83540; 83550; 85025